=== PATIENT | female | born 1995 | race Caucasian/White ===

== ENCOUNTER 2018-01-12 17:37 | Emergency (ER) | payer BC ==
[2018-01-12 19:19] VITALS: BP 133/91
--- NOTE | 2018-01-12 19:53 | UC ---
Abdominal Pain Female HPI - HPI Summary HPI Summary: Patient is a 22-year-old female that presents here for evaluation of constipation. She took a laxative and had results today. She did have nausea and vomiting 1. She currently has mild, 3 out of 10, diffuse abdominal pain. She has had no fever or chills. She has never had any surgeries on her abdomen. She states that she eats a lot of cheese. - History of Current Complaint Chief Complaint: UCGI Stated Complaint: CONSTIPATION/VOMITING Time Seen by Provider: 01/12/18 19:21 Hx Obtained From: Patient Hx Last Menstrual Period: 12/23/17 Onset/Duration: Gradual Onset, Lasting Days Timing: Constant Severity Initially: Moderate Severity Currently: Mild Pain Intensity: 3 Pain Scale Used: 0-10 Numeric Location: Diffuse Character: Cramping Aggravating Factor(s): Nothing Alleviating Factor(s): Bowel Movement Associated Signs and Symptoms: Positive: Constipation, Nausea, Vomiting - x1 Allergies/Adverse Reactions: Allergies Allergy/AdvReac Type Severity Reaction Status Date / Time No Known Allergies Allergy Verified 01/12/18 19:19 Home Medications: Home Medications NK [No Home Medications Reported] 01/12/18 [History Confirmed 01/12/18] PMH/Surg Hx/FS Hx/Imm Hx Previously Healthy: Yes - Surgical History Surgical History: Yes Surgery Procedure, Year, and Place: T&A - Family History Known Family History: Positive: Hypertension - Social History Alcohol Use: Occasionally Substance Use Type: None Smoking Status (MU): Never Smoked Tobacco Type: Smokeless Tobacco Review of Systems Constitutional: Negative Skin: Negative Eyes: Negative ENT: Negative Respiratory: Negative Cardiovascular: Negative Gastrointestinal: Abdominal Pain, Vomiting, Nausea Genitourinary: Negative Motor: Negative Neurovascular: Negative Musculoskeletal: Negative Neurological: Negative Psychological: Negative Is Patient Immunocompromised?: No All Other Systems Reviewed And Are Negative: Yes Physical Exam Triage Information Reviewed: Yes Appearance: Well-Appearing, No Pain Distress, Well-Nourished Vital Signs: Initial Vital Signs Temp 98.1 F 01/12/18 19:10 Pulse 73 01/12/18 19:10 Resp 18 01/12/18 19:10 BP 133/91 01/12/18 19:10 Pulse Ox 100 01/12/18 19:10 Vital Signs Reviewed: Yes Eyes: Positive: Conjunctiva Clear ENT: Positive: Hearing grossly normal. Negative: Nasal congestion, Nasal drainage, Trismus, Muffled voice, Sinus tenderness, Uvula midline Neck: Positive: Supple, Nontender Respiratory: Positive: Lungs clear, Normal breath sounds, No respiratory distress, No accessory muscle use Cardiovascular: Positive: RRR, No Murmur Abdomen Description: Positive: Nontender, No Organomegaly. Negative: CVA Tenderness (R), CVA Tenderness (L), Hepatomegaly, McBurney's Point Tenderness, Peritoneal Signs, Splenomegaly Bowel Sounds: Positive: Present Musculoskeletal: Positive: ROM Intact, No Edema Neurological: Positive: Alert Psychological Exam: Normal Skin Exam: Normal Abd Pain Female Course/Dx - Differential Dx/Diagnosis Provider Diagnoses: constipation Discharge - Sign-Out/Discharge Documenting (check all that apply): Patient Departure - Discharge Plan Condition: Stable Disposition: HOME Patient Education Materials: Constipation (ED) Referrals: Deniz Dumont MD [Primary Care Provider] - 5 Days (if not better) Additional Instructions: you may need another dose of laxative take stool softener at bedtime for 2 weeks recheck for new or worsening symptoms - Billing Disposition and Condition Condition: STABLE Disposition: Home
== END 2018-01-12 19:56 | disposition home or self-care (01) ==
LOC: UCCORT 17:37
DX: K59.00 Constipation, unspecified (principal)
CPT/HCPCS: 99201; G0463